=== PATIENT | female | born 1990 | race Caucasian/White ===

== ENCOUNTER 2020-09-22 12:35 | Emergency (ER) | payer OTHER ==
[~2020-09-22] VITALS: Ht 154.9 cm; Wt 77.8 kg
[2020-09-22 12:36] VITALS: BP 126/80
[2020-09-22] MEDS ORDERED: ADDE20CA3 PO (12:40)
[2020-09-22] MEDS ORDERED: KETO10TAB PO (13:50)
[2020-09-22] MEDS ORDERED: KETOROLAC TROMETHAMINE 10 MG TAB PO ONE (14:00)
[2020-09-22] MEDS ORDERED: ACETAMINOPHEN 325 MG TAB PO ONE (14:00)
[2020-09-22 14:13] LABS: INFLUENZA A AMPLIFICATION NEGATIVE (NEGATIVE); INFLUENZA B AMPLIFICATION NEGATIVE (NEGATIVE)
== END 2020-09-22 14:13 | disposition home or self-care (01) ==
LOC: M ED 12:35
DX: J06.9 Acute upper respiratory infection, unspecified (principal); B34.9 Viral infection, unspecified; R51.9 Headache, unspecified; Z79.899 Other long term (current) drug therapy
CPT/HCPCS: 87502; 87880; 99283; U0003

== ENCOUNTER → 2021-07-21 | Outpatient (REF) | payer OTHER ==
[~2021-07-21] MED LIST: ADDE20CA3 PO; KETO10TAB PO
== END ==
LOC: M LAB REF 20:02
PROVIDERS: ATTEND Physician Assistant
DX: B34.9 Viral infection, unspecified (principal)

== ENCOUNTER 2021-08-06 20:07 | Emergency (ER) | payer OTHER ==
[~2021-08-06] VITALS: Ht 154.9 cm; Wt 77.2 kg
[2021-08-06 20:08] VITALS: BP 131/88
[2021-08-06] MEDS ORDERED: EFFE37.5 PO (20:15)
[2021-08-06] MEDS ORDERED: DOXYCYCLINE HYCLATE 100MG TABLET PO ONE (21:50)
[2021-08-06] MEDS ORDERED: DOXY1CAP62 PO (21:53)
[2021-08-06] MEDS ORDERED: BACITRACIN OINTMENT 30GM TUBE TOP STA (21:57)
== END 2021-08-06 22:04 | disposition home or self-care (01) ==
LOC: M ED 20:07
DX: S00.91XA Abrasion of unspecified part of head, initial encounter (principal); X58.XXXA Exposure to other specified factors, initial encounter; Y92.9 Unspecified place or not applicable; Y93.9 Activity, unspecified; Y99.9 Unspecified external cause status; E28.2 Polycystic ovarian syndrome; E11.9 Type 2 diabetes mellitus without complications

== ENCOUNTER → 2021-08-14 | Outpatient (REF) ==
[~2021-08-14] MED LIST changes: +DOXY1CAP62 PO; +EFFE37.5 PO
== END ==
LOC: M EMP 12:50
PROVIDERS: ATTEND Family Medicine
DX: Z11.52 Encounter for screening for COVID-19 (principal)